=== PATIENT | female | born 1940 | race Caucasian/White ===

== ENCOUNTER 2022-09-10 10:22 | Outpatient (CLI) | payer OTHER | END 2022-09-10 10:50 | disposition home or self-care (01) | LOC: MRI 10:22 | PROVIDERS: ATTEND Internal Medicine | DX: M54.2 Cervicalgia (principal); M54.6 Pain in thoracic spine; M54.17 Radiculopathy, lumbosacral region | CPT/HCPCS: 72141; 72146; 72148 ==

== ENCOUNTER 2024-05-19 16:03 | Emergency (ER) | payer OTHER ==
[~2024-05-19] VITALS: Ht 170.2 cm; Wt 49.9 kg
[2024-05-19] MEDS ORDERED: GABAPENTIN (16:08)
[2024-05-19 16:09] VITALS: BP 150/71; O2SAT 97
[2024-05-19] MEDS ORDERED: ROSUVASTATIN CA10 MG (16:09)
[2024-05-19] MEDS ORDERED: TETANUS & DIPHTHERIA TOX,ADULT 0.5 ML VIAL IM ONE (19:15)
[2024-05-19] MEDS ORDERED: ACETAMINOPHEN 500 MG GEL..CAP PO ONE (19:15)
== END 2024-05-19 21:34 | disposition home or self-care (01) ==
LOC: ER 16:03
DX: S09.8XXA Other specified injuries of head, initial encounter (principal); W19.XXXA Unspecified fall, initial encounter; Y93.89 Activity, other specified; Y92.89 Other specified places as the place of occurrence of the external cause; Y99.8 Other external cause status
CPT/HCPCS: 70450; 70486; 71046; 72125; 90471; 90714; 99284; J1670

== ENCOUNTER 2024-06-02 10:59 | Inpatient (IN) | payer OTHER ==
[~2024-06-02] VITALS: Ht 160 cm; Wt 54.4 kg
[~2024-06-02 10:59] MED LIST: GABAPENTIN; ROSUVASTATIN CA10 MG
[2024-06-02] MEDS ORDERED: 0.9 % SODIUM CHLORIDE 1,000 ML IV SCH ×2 (11:30→21:00)
[2024-06-02 13:07] LABS: HEMATOCRIT 39.9 % (36.0-45.00); HEMOGLOBIN 13.2 g/dL (12.0-15.00); MEAN CELL VOLUME 94.3 fL (80.00-100.00); MEAN CORPUSCULAR HEMOGLOBIN 31.1 pg (27.00-32.0); MEAN CORPUSCULAR HGB CONC 32.9 g/dl (32.0-36.0); PLATELET COUNT 230 K/uL (150-450); RED BLOOD COUNT 4.24 M/uL (4.00-6.00); RED CELL DISTRIBUTION WIDTH 13.6 % (11.5-14.5)
[2024-06-02 13:29] LABS: PH,URINE 5.5 (5.0-8.0); URINE APPEARANCE Clear; URINE BILIRRUBIN Small (NEGATIVE); URINE BLOOD Negative; URINE COLOR Dark Yellow; URINE GLUCOSE Negative (NEGATIVE); URINE KETONE Trace (NEGATIVE); URINE LEUKOCYTE Trace; URINE NITRATE Negative
[2024-06-02 13:33] LABS: URINE BACTERIA 30.5 uL (0.0-1933); URINE EPITHELIAL CELLS 7.1 uL (0.0-38.8); URINE RBC 8.3 uL (0.0-20.8); URINE WBC 3.1 uL (0.0-23.2)
[2024-06-02 13:38] LABS: URINE CAST 0.73 uL (0.0-1.40); URINE PROTEIN 100 (NEGATIVE)
[2024-06-02 13:57] LABS: CREATININE SERUM 0.76 mg/dL (0.55-1.02); GFR 73.04; POTASSIUM 4.55 mEq/L (3.5-5.1)
[2024-06-02] MEDS ORDERED: FAMOTIDINE/PF 20 MG in 0.9 % SODIUM CHLORIDE 8 ML IV PUSH STA (16:02)
[2024-06-02] MEDS ORDERED: FAMOTIDINE/PF 20 MG/2 ML VIAL ONE (16:11)
[2024-06-02] MEDS ORDERED: DIPHENOXYLATE HCL/ATROPINE 1 UDTAB TABLET PO ONE (16:15)
[2024-06-02 18:58] LABS: ABG PH 7.456 (7.35-7.45); ABG PO2 63.6 mmHg (80-100); ABG pCO2 33.7 mmHg (35-45); BASE EXCESS 0 mmol/l; SaO2 93.2 %
[2024-06-02 18:59] LABS: BICARBONATE 23.2 mmol/l (23-25); Tco2 24.2 mmol/l; allen test SATISFACTORY; o2 21 %; puncture site RADIAL RIGHT
[2024-06-02] MEDS ORDERED: BENZONATATE 100 MG CAPSULE PO SCH (20:54)
[2024-06-02] MEDS ORDERED: AZITHROMYCIN 500 MG in DEXTROSE 5 % IN WATER 250 ML IV SCH (20:54)
[2024-06-02] MEDS ORDERED: CEFTRIAXONE SODIUM 2,000 MG in 0.9 % SODIUM CHLORIDE 100 ML IV SCH (20:54)
[2024-06-02] MEDS ORDERED: ACETAMINOPHEN 500 MG GEL..CAP PO PRN (21:00)
[2024-06-02] MEDS ORDERED: METHYLPREDNISOLONE SOD SUCC 125 MG VIAL IV ONE (21:00)
[2024-06-02] MEDS ORDERED: BENZONATATE 100 MG CAPSULE PO ONE (23:20)
[2024-06-02] MEDS ORDERED: METHYLPREDNISOLONE SOD SUCC 125 MG VIAL ONE (23:20)
[2024-06-02] MEDS ORDERED: AZITHROMYCIN 500 MG VIAL IV ONE (23:20)
[2024-06-02] MEDS ORDERED: CEFTRIAXONE SODIUM 2,000 MG VIAL ONE (23:20)
[2024-06-02 23:41] VITALS: BP 112/78
[2024-06-03 00:29] LABS: INR 1.05; PARTIAL THROMBOPLASTIN TIME 28.4 SECONDS (22.0-34.0); PROTHROMBIN TIME 11.4 SECONDS (9.0-11.5)
[2024-06-03 00:57] LABS: PH,URINE 5.5 (5.0-8.0); URINE APPEARANCE Clear; URINE BILIRRUBIN Negative (NEGATIVE); URINE BLOOD Negative; URINE COLOR Yellow; URINE GLUCOSE Negative (NEGATIVE); URINE KETONE Trace (NEGATIVE); URINE LEUKOCYTE Trace; URINE NITRATE Negative; URINE PROTEIN 30 (NEGATIVE)
[2024-06-03 01:00] LABS: URINE BACTERIA 165.2 uL (0.0-1933); URINE EPITHELIAL CELLS 4.5 uL (0.0-38.8); URINE RBC 11.9 uL (0.0-20.8); URINE WBC 35.5 uL (0.0-23.2)
[2024-06-03] MEDS ORDERED: IPRATROPIUM BROMIDE 0.5 MG/2.5 ML AMPUL.NEB IH SCH (01:00)
[2024-06-03 01:01] LABS: URINE CAST 0.14 uL (0.0-1.40)
[2024-06-03 08:37] VITALS: BP 142/63
[2024-06-03] MEDS ORDERED: ATORVASTATIN CALCIUM 20 MG TABLET PO SCH (09:00)
[2024-06-03] MEDS ORDERED: FAMOTIDINE/PF 20 MG in 0.9 % SODIUM CHLORIDE 8 ML IV PUSH SCH (09:00)
[2024-06-03] MEDS ORDERED: AZITHROMYCIN 500 MG VIAL IV SCH (09:00)
[2024-06-03] MEDS ORDERED: ENOXAPARIN SODIUM 40 MG/0.4 ML SYRINGE SUBCUTANEO SCH (09:00)
[2024-06-03] MEDS ORDERED: AZITHROMYCIN 500 MG VIAL IV ONE (13:25)
[2024-06-03] MEDS ORDERED: GABAPENTIN 300 MG CAPSULE PO ONE (13:45)
[2024-06-03 18:59] VITALS: BP 119/57
[2024-06-04 02:13] VITALS: BP 159/84; O2SAT 98
[2024-06-04] MEDS ORDERED: AZITHROMYCIN 500 MG VIAL IV ONE (08:19)
[2024-06-04 08:24] LABS: HEMATOCRIT 39.1 % (36.0-45.00); HEMOGLOBIN 12.9 g/dL (12.0-15.00); MEAN CELL VOLUME 94.7 fL (80.00-100.00); MEAN CORPUSCULAR HEMOGLOBIN 31.3 pg (27.00-32.0); PLATELET COUNT 279 K/uL (150-450); RED BLOOD COUNT 4.13 M/uL (4.00-6.00); RED CELL DISTRIBUTION WIDTH 13.9 % (11.5-14.5)
[2024-06-04 08:55] LABS: BILIRUBIN TOTAL 0.4 mg/dL (0.3-1.2); CALCIUM 9.8 mg/dL (8.5-10.1); CREATININE SERUM 0.56 mg/dL (0.55-1.02); GFR 103.9; GLOBULINA 3.7 G/DL (2.4-3.5); POTASSIUM 4.22 mEq/L (3.5-5.1); TOTAL PROTEIN 6.7 gm/dL (6.4-8.2)
[2024-06-04 10:02] VITALS: BP 175/87; O2SAT 97
[2024-06-04] MEDS ORDERED: NIFEDIPINE 30 MG TAB.SA.OSM PO SCH (12:35)
[2024-06-04] MEDS ORDERED: TRAMADOL HCL 50 MG TABLET PO PRN (14:00)
[2024-06-04] MEDS ORDERED: ENALAPRILAT DIHYDRATE 1.25 MG/ML VIAL IV PRN (15:30)
[2024-06-04 17:50] VITALS: BP 110/60; O2SAT 96
[2024-06-05 01:15] VITALS: BP 126/90; O2SAT 95
[2024-06-05] MEDS ORDERED: AZITHROMYCIN 500 MG VIAL IV ONE (08:51)
[2024-06-05 10:08] VITALS: BP 142/77; O2SAT 98
[2024-06-05] MEDS ORDERED: LIPITOR20 MG PO (11:49)
[2024-06-05] MEDS ORDERED: NIFEDIPINE ER30 M1 PO (11:49)
[2024-06-05] MEDS ORDERED: MONTELUKAST SOD10 MG PO (11:50)
[2024-06-05] MEDS ORDERED: TRAM1TAB98 PO (11:50)
[2024-06-05] MEDS ORDERED: SYMBICORT 80/10.2 GM IH (11:51)
[2024-06-05] MEDS ORDERED: IPRATROPIU0.2 MG/1 M IH (11:51)
[2024-06-05] MEDS ORDERED: MONTELUKAST SODIUM 10 MG TABLET PO SCH (17:00)
== END 2024-06-05 12:08 | disposition home or self-care (01) | DRG 195 ==
LOC: ER 11:01 → MEDJ 22:20
PROVIDERS: Emergency Medicine; General Practice; ADMIT Internal Medicine; ATTEND Internal Medicine
PROC: BW21YZZ Computerized Tomography (CT Scan) of Abdomen and Pelvis using Other Contrast (ICD-10-PCS; principal; 2024-06-02)
PROC: BW24ZZZ Computerized Tomography (CT Scan) of Chest and Abdomen (ICD-10-PCS; 2024-06-02)
DX: J18.9 Pneumonia, unspecified organism (principal); J43.2 Centrilobular emphysema; R09.02 Hypoxemia; E78.5 Hyperlipidemia, unspecified